=== PATIENT | male | born 1930 | race Caucasian/White ===

== ENCOUNTER 2016-11-06 12:19 | Observation (INO) | payer MEDICARE, BC ==
--- NOTE | 2016-11-06 12:55 | ED ---
General Adult HPI - General Chief complaint: Arrhythmia/Palpitations Stated complaint: Irregular Heartbeat Time Seen by Provider: 11/06/16 12:40 Source: patient, RN notes reviewed Mode of arrival: ambulatory Limitations: no limitations - History of Present Illness Initial comments: 86-year-old male presents for evaluation of bilateral arm pain. Patient has history of CAD status post artery bypass graft 9 years ago. Patient states at the time of his initial bypasses chief complaint was bilateral arm pain. He felt he should be evaluated for this. Patient saw his primary care physician in [place], was noted to have an irregular bradycardic heart rate. Patient refused EMS transport, came by private vehicle. Patient's arm pain is nearly resolved at the time my evaluation. No chest pain. No shortness of breath. No diaphoresis. No nausea vomiting. No fever or chills. No cough. - Related Data Home Medications Medication Instructions Recorded Confirmed Aspirin 81 mg PO DAILY 11/06/16 11/06/16 Carvedilol [Coreg] 3.125 mg PO BID 11/06/16 11/06/16 Cholecalciferol [Vitamin D3] 1,000 unit PO DAILY 11/06/16 11/06/16 Finasteride [Proscar] 5 mg PO DAILY 11/06/16 11/06/16 Simvastatin [Zocor] 10 mg PO HS 11/06/16 11/06/16 Allergies Allergy/AdvReac Type Severity Reaction Status Date / Time No Known Allergies Allergy Verified 11/06/16 12:53 Review of Systems ROS Statement: Those systems with pertinent positive or pertinent negative responses have been documented in the HPI. ROS Other: All systems not noted in ROS Statement are negative. Past Medical History Past Medical History: Coronary Artery Disease (CAD) History of Any Multi-Drug Resistant Organisms: None Reported Past Surgical History: Appendectomy, Coronary Bypass/CABG, Tonsillectomy Past Psychological History: No Psychological Hx Reported Smoking Status: Never smoker Past Alcohol Use History: Unable to Obtain Past Drug Use History: None Reported General Exam Limitations: no limitations General appearance: alert, in no apparent distress Head exam: Present: atraumatic, normocephalic Eye exam: Present: normal appearance, PERRL ENT exam: Present: normal exam Neck exam: Present: normal inspection. Absent: tenderness, meningismus Respiratory exam: Present: normal lung sounds bilaterally. Absent: respiratory distress Cardiovascular Exam: Present: normal rhythm, bradycardia GI/Abdominal exam: Present: soft. Absent: distended, tenderness Extremities exam: Present: normal inspection, normal capillary refill. Absent: pedal edema Neurological exam: Present: alert, oriented X3, CN II-XII intact. Absent: motor sensory deficit Psychiatric exam: Present: normal affect, normal mood Skin exam: Present: warm, dry, intact. Absent: cyanosis, diaphoretic Course Vital Signs 11/06/16 11/06/16 12:35 14:11 Temperature 98.0 F Pulse Rate 53 L 58 L Respiratory 20 18 Rate Blood Pressure 116/73 114/84 O2 Sat by Pulse 97 98 Oximetry EKG Findings - EKG Comments: EKG Findings:: EKG shows sinus bradycardia with first-degree AV block, ventricular 51, CT interval 226, QRS duration 86, QTC 388, no ST segment elevation or depression, no T-wave abnormality Medical Decision Making - Medical Decision Making 86 male presenting with bilateral arm pain. Patient does have history of CAD status post CABG and states that with his previous HI he had bilateral arm pain , no chest pain. Patient denies chest pain at this time. Arm pain is nearly completely resolved at the time my evaluation. No associated symptoms noted. Chest x-ray is obtained, shows left base atelectasis. Laboratory studies reveal no elevation in white count, stable hemoglobin, initial troponin is negative. Patient is given an aspirin in the emergency department EKG is nonischemic, shows sinus bradycardia with first-degree AV block. EKG obtained at the patient's primary care physician does show heart block consistent with Mobitz type II with a ventricular rate of 50. Patient has no known history of heart block. He is on Coreg. No recent change in medications. Diagnosis: Anginal equivalent, bradycardia - Lab Data Result diagrams: 11/06/16 13:08 11/06/16 13:08 Lab Results 11/06/16 11/06/16 11/06/16 Range/Units 13:08 13:08 13:08 WBC 4.1 (3.8-10.6) k/uL RBC 5.08 (4.30-5.90) m/uL Hgb 15.6 (13.0-17.5) gm/dL Hct 45.4 (39.0-53.0) % MCV 89.4 (80.0-100.0) fL MCH 30.8 (25.0-35.0) pg MCHC 34.4 (31.0-37.0) g/dL RDW 13.0 (11.5-15.5) % Plt Count 136 L (150-450) k/uL Neutrophils % (Manual) 53 % Band Neutrophils % 1 % Lymphocytes % (Manual) 29 % Monocytes % (Manual) 12 % Eosinophils % (Manual) 5 % Neutrophils # (Manual) 2.20 (1.3-7.7) k/uL Lymphocytes # (Manual) 1.19 (1.0-4.8) k/uL Monocytes # (Manual) 0.49 (0-1.0) k/uL Eosinophils # (Manual) 0.21 (0-0.7) k/uL Nucleated RBCs 0 (0-0) /100 WBC Manual Slide Review Performed RBC Morphology Normal PT (9.0-12.0) sec INR (<1.2) APTT (22.0-30.0) sec Sodium 139 (137-145) mmol/L Potassium 5.0 (3.5-5.1) mmol/L Chloride 109 H (98-107) mmol/L Carbon Dioxide 22 (22-30) mmol/L Anion Gap 8 mmol/L BUN 21 H (9-20) mg/dL Creatinine 1.00 (0.66-1.25) mg/dL Est GFR (MDRD) Af Amer >60 (>60 ml/min/1.73 sqM) Est GFR (MDRD) Non-Af >60 (>60 ml/min/1.73 sqM) Glucose 103 H (74-99) mg/dL Calcium 9.1 (8.4-10.2) mg/dL Magnesium 2.0 (1.6-2.3) mg/dL Total Bilirubin 0.6 (0.2-1.3) mg/dL AST 21 (17-59) U/L ALT 32 (21-72) U/L Alkaline Phosphatase 53 (38-126) U/L Total Creatine Kinase 60 (55-170) U/L CK-MB (CK-2) 1.2 (0.0-2.4) ng/mL CK-MB (CK-2) Rel Index 2.0 Troponin I <0.012 (0.000-0.034) ng/mL Total Protein 6.0 L (6.3-8.2) g/dL Albumin 3.6 (3.5-5.0) g/dL TSH 1.390 (0.465-4.680) mIU/L 11/06/16 Range/Units 13:08 WBC (3.8-10.6) k/uL RBC (4.30-5.90) m/uL Hgb (13.0-17.5) gm/dL Hct (39.0-53.0) % MCV (80.0-100.0) fL MCH (25.0-35.0) pg MCHC (31.0-37.0) g/dL RDW (11.5-15.5) % Plt Count (150-450) k/uL Neutrophils % (Manual) % Band Neutrophils % % Lymphocytes % (Manual) % Monocytes % (Manual) % Eosinophils % (Manual) % Neutrophils # (Manual) (1.3-7.7) k/uL Lymphocytes # (Manual) (1.0-4.8) k/uL Monocytes # (Manual) (0-1.0) k/uL Eosinophils # (Manual) (0-0.7) k/uL Nucleated RBCs (0-0) /100 WBC Manual Slide Review RBC Morphology PT 10.7 (9.0-12.0) sec INR 1.1 (<1.2) APTT 29.3 (22.0-30.0) sec Sodium (137-145) mmol/L Potassium (3.5-5.1) mmol/L Chloride (98-107) mmol/L Carbon Dioxide (22-30) mmol/L Anion Gap mmol/L BUN (9-20) mg/dL Creatinine (0.66-1.25) mg/dL Est GFR (MDRD) Af Amer (>60 ml/min/1.73 sqM) Est GFR (MDRD) Non-Af (>60 ml/min/1.73 sqM) Glucose (74-99) mg/dL Calcium (8.4-10.2) mg/dL Magnesium (1.6-2.3) mg/dL Total Bilirubin (0.2-1.3) mg/dL AST (17-59) U/L ALT (21-72) U/L Alkaline Phosphatase (38-126) U/L Total Creatine Kinase (55-170) U/L CK-MB (CK-2) (0.0-2.4) ng/mL CK-MB (CK-2) Rel Index Troponin I (0.000-0.034) ng/mL Total Protein (6.3-8.2) g/dL Albumin (3.5-5.0) g/dL TSH (0.465-4.680) mIU/L Disposition Clinical Impression: Bradycardia, Anginal equivalent Disposition: ADMITTED IP TO THIS HOSP Condition: Stable Referrals: Hilario Wagoner DO [Primary Care Provider] - 1-2 days Decision to Admit Reason: Admit from EC Decision Date: 11/06/16 Decision Time: 15:00
--- NOTE | 2016-11-06 13:28 | XR ---
EXAMINATION TYPE: XR chest 1V portable DATE OF EXAM: 11/06/2016 COMPARISON: NONE HISTORY: Dysrhythmia. TECHNIQUE: Single AP portable frontal upright view of the chest is obtained. FINDINGS: There is patchy left basilar opacity consistent with atelectasis and/or infiltrate. Scatt ered calcified granulomas right hilar and lower lung are present. No large pleural effusion or pneumo thorax is seen bilaterally. Post CABG changes with mediastinal clips and sternal wires is noted. The cardiac silhouette size is upper limits of normal with ectatic thoracic aorta. There is degenerative change at bilateral glenohumeral joints. Old right posterior eighth rib fractures suspected. IMPRESSION: Chronic changes with patchy left basilar atelectasis and/or infiltrate.
[2016-11-06 13:32] LABS: Aty Lym Flag Slight; CH 30.5; CHCM 34.2; HCT 45.4 % (39.0-53.0); HDW 2.58; HGB 15.6 gm/dL (13.0-17.5); MCH 30.8 pg (25.0-35.0); MCHC 34.4 g/dL (31.0-37.0); MCV 89.4 fL (80.0-100.0); RBC 5.08 m/uL (4.30-5.90); WBC 4.1 k/uL (3.8-10.6); WBC (Perox) 3.65
[2016-11-06 13:36] LABS: ALT 32 U/L (21-72); AST 21 U/L (17-59); Alkaline Phosphatase 53 U/L (38-126); Anion Gap 8 mmol/L; Blood Urea Nitrogen 21 mg/dL (9-20); Calcium 9.1 mg/dL (8.4-10.2); Carbon Dioxide 22 mmol/L (22-30); Chloride 109 mmol/L (98-107); Glucose 103 mg/dL (74-99); Non-African American GFR(MDRD) >60 (>60 ml/min/1.73 sqM); Sodium 139 mmol/L (137-145); Total Bilirubin 0.6 mg/dL (0.2-1.3)
[2016-11-06 13:45] LABS: INR 1.1 (<1.2); Partial Thromboplastin Time 29.3 sec (22.0-30.0); Prothrombin Time 10.7 sec (9.0-12.0)
[2016-11-06 13:54] LABS: Add Differential Manual Differential
[2016-11-06 13:56] LABS: Band Neutrophils % 1 %; Manual Review Performed; Nucleated Red Blood Cells 0 /100 WBC (0-0); Total Cells Counted 100
[2016-11-06 13:57] LABS: RBC Morphology Normal
[2016-11-06 14:00] LABS: Creatine Kinase 60 U/L (55-170)
[2016-11-06 14:13] LABS: Creatine Kinase MB 1.2 ng/mL (0.0-2.4); Troponin I <0.012 ng/mL (0.000-0.034)
[2016-11-06] MEDS ORDERED: ASPIRIN 325 MG TAB PO STA (14:31)
[2016-11-06] MEDS ORDERED: ONDANSETRON 4 MG/2 ML VIAL IVP PRN (14:53)
[2016-11-06] MEDS ORDERED: NALOXONE 0.4 MG/ML 1 ML VIAL IV PRN (14:53)
[2016-11-06] MEDS ORDERED: MORPHINE SULFATE 4 MG/ML SYRINGE IV PRN (14:53)
[2016-11-06] MEDS: SODIUM CHLORIDE 0.9% 1,000 ML IV SCH (15:05)
[2016-11-06 16:02] VITALS: RESP 18
--- NOTE | 2016-11-06 16:24 | US ---
EXAMINATION TYPE: US venous doppler duplex LE RT DATE OF EXAM: 11/06/2016 4:15 PM COMPARISON: NONE CLINICAL HISTORY: Pain. Patient states hx of DVT in right leg x 4 years ago, leg has been bigger than the other since. On baby aspirin. SIDE PERFORMED: Right TECHNIQUE: The lower extremity deep venous system is examined utilizing real time linear array sonog robin with graded compression, doppler sonography and color-flow sonography. VESSELS IMAGED: External Iliac Vein (EIV) Common Femoral Vein Deep Femoral Vein Greater Saphenous Vein * Femoral Vein Popliteal Vein Small Saphenous Vein * Proximal Calf Veins (* superficial vessels) Right Leg: Appears POSITIVE for DVT from proximal Femoral vein to mid Popliteal. Light compressions performed, partial compressible. IMPRESSION: Findings compatible with DVT as noted above.
[2016-11-06] MEDS ORDERED: HEPARIN SODIUM,PORCINE 5,000 UNIT/ML 1 ML VIAL IV STA (16:59)
[2016-11-06] MEDS: HEPARIN SODIUM,PORCINE/D5W PMX 25,000 UNIT in DEXTROSE/WATER 1 500ML.BAG IV SCH (17:27)
[2016-11-06 18:39] LABS: Creatine Kinase 51 U/L (55-170)
[2016-11-06 18:53] LABS: Creatine Kinase MB 1.1 ng/mL (0.0-2.4); Troponin I <0.012 ng/mL (0.000-0.034)
[2016-11-06] MEDS: ATORVASTATIN 10 MG TAB PO SCH (22:17)
[2016-11-07 00:53] LABS: Creatine Kinase 44 U/L (55-170)
--- NOTE | 2016-11-07 01:05 | P.HPIM ---
History of Present Illness H&P Date: 11/06/16 Chief Complaint: Left arm pain 86-year-old male with a known history of coronary artery disease status post 2 vessel CABG in 2008, history of right lower extremity DVT 2 years ago presents for evaluation of bilateral arm pain Patient states at the time of his initial bypasses chief complaint was bilateral arm pain. He felt he should be evaluated for this. Patient saw his primary care physician in [place], was noted to have an irregular bradycardic heart rate. Patient refused EMS transport, came by private vehicle. Patient's arm pain is resolved at this time. No chest pain. No shortness of breath. No diaphoresis. No nausea vomiting. No fever or chills. No cough. Denied any recent illnesses. Patient says that his right lower back and is chronically swollen since his DVT diagnosis. EKG showed sinus bradycardia with first degree AV block heart rate of 51 Troponin 2 negative Chest x-ray showed chronic changes with patchy left basilar atelectasis Ultrasound of the lower extremity showed right positive for DVT from proximal femoral vein to popliteal vein. Review of Systems CONSTITUTIONAL: No fever, no malaise, no fatigue. HEENT: No recent visual problems or hearing problems. Denied any sore throat. CARDIOVASCULAR: No chest pain, orthopnea, PND, no palpitations, no syncope. PULMONARY: , no hemoptysis. GASTROINTESTINAL: No diarrhea, no nausea, no vomiting, no abdominal pain. Normoactive bowel sounds. NEUROLOGICAL: No headaches, no weakness, no numbness. HEMATOLOGICAL: Denies any bleeding or petechiae. GENITOURINARY: Denies any burning micturition, frequency, or urgency. MUSCULOSKELETAL/RHEUMATOLOGICAL: Denies any joint pain, swelling, or any muscle pain. Bilateral arm pain ENDOCRINE: Denies any polyuria or polydipsia. The rest of the 14-point review of systems is negative. Past Medical History Past Medical History: Coronary Artery Disease (CAD), Cancer, Hyperlipidemia, Pneumonia, Prostate Disorder Additional Past Medical History / Comment(s): BROKEN RIBS IN PAST, SKIN CA History of Any Multi-Drug Resistant Organisms: None Reported Past Surgical History: Appendectomy, Coronary Bypass/CABG, Hernia Repair, Tonsillectomy Additional Past Surgical History / Comment(s): 2 VESSEL CABG, JORGE L CATARACT-LENS IMPLANTS,JORGE L HERNIA REPAIR, SKIN CA REM FLEECIA Past Anesthesia/Blood Transfusion Reactions: No Reported Reaction Smoking Status: Never smoker - Past Family History Mother Family Medical History: Myocardial Infarction (MS) Father Family Medical History: Myocardial Infarction (MS) Medications and Allergies Home Medications Medication Instructions Recorded Confirmed Type Aspirin 81 mg PO DAILY 11/06/16 11/06/16 History Carvedilol [Coreg] 3.125 mg PO BID 11/06/16 11/06/16 History Cholecalciferol [Vitamin D3] 1,000 unit PO DAILY 11/06/16 11/06/16 History Finasteride [Proscar] 5 mg PO DAILY 11/06/16 11/06/16 History Simvastatin [Zocor] 10 mg PO HS 11/06/16 11/06/16 History Allergies Allergy/AdvReac Type Severity Reaction Status Date / Time No Known Allergies Allergy Verified 11/06/16 12:53 Physical Exam Vitals: Vital Signs Temp Pulse Pulse Resp BP BP Pulse Ox 11/06/16 20:00 97.5 F L 56 L 18 132/66 98 11/06/16 18:33 69.9 F L 61 18 121/58 96 11/06/16 18:28 69.9 F L 61 18 121/58 96 11/06/16 17:38 55 L 18 124/67 98 11/06/16 16:01 44 L 18 125/79 97 11/06/16 15:08 77 20 128/59 98 11/06/16 14:11 58 L 18 114/84 98 11/06/16 12:35 98.0 F 53 L 20 116/73 97 Intake and Output 11/06/16 11/06/16 11/06/16 06:59 14:59 22:59 Other: Voiding Method Toilet Weight 106.594 kg Patient Weight 11/07/16 06:59 Weight 106.594 kg PHYSICAL EXAMINATION: Patient is lying in the bed comfortably, no acute distress, awake alert and oriented.. HEENT: Normocephalic. Neck is supple. Pupils reactive. Nostrils clear. Oral cavity is moist. Ears reveal no drainage. Neck reveals no JVD, carotid bruits, or thyromegaly. CHEST EXAMINATION: Trachea is central. Symmetrical expansion. Lung webb clear to auscultation and percussion. CARDIAC: Normal S1, S2 with no gallops. No murmurs . Sinus bradycardia ABDOMEN: Soft. Bowel sounds normal. No organomegaly. No abdominal bruits. Extremities. Right lower extremity appears to swollen compared to left. No clubbing or cyanosis. No calf tenderness Neurologically awake, alert, oriented x3 with well-coordinated movements. l Skin: no rash or skin lesions Musculoskeletal: no joint swelling or deformity. Results CBC & Chem 7: 11/06/16 13:08 11/06/16 13:08 Labs: Abnormal Lab Results - Last 24 Hours (Table) 11/06/16 11/06/16 11/06/16 Range/Units 13:08 13:08 18:10 Plt Count 136 L (150-450) k/uL Chloride 109 H (98-107) mmol/L BUN 21 H (9-20) mg/dL Glucose 103 H (74-99) mg/dL Total Creatine Kinase 51 L (55-170) U/L Total Protein 6.0 L (6.3-8.2) g/dL Assessment and Plan Plan: #1 atypical chest pain. Patient presented with left arm pain which was similar to his previous MS. We will rule out ACS #2 right lower extremity DVT in the proximal femoral vein. #3 history of DVT in the right lower extremity 2 years ago. Was on anticoagulant with Coumadin for 6 months #4 history of coronary artery disease post MS and CABG in 2008. #5 morbid obesity with BMI 35.7. Plan: Patient will be continued on heparin drip and possibly change to oral anticoagulants tomorrow. We will continue with serial EKG and troponins and telemetry monitoring. Continue with aspirin and statins and hold Coreg due to bradycardia. Cardiology has been consulted. We'll continue the current management and further recommendations based on clinical course. Time with Patient: Greater than 30
[2016-11-07 01:06] LABS: Troponin I <0.012 ng/mL (0.000-0.034)
[2016-11-07] MEDS: FINASTERIDE 5 MG TAB PO SCH (08:55)
[2016-11-07] MEDS: ASPIRIN 81 MG PO SCH (08:55)
[2016-11-07] MEDS: CHOLECALCIFEROL 1,000 UNIT TAB PO SCH (08:55)
[2016-11-07 09:46] LABS: Basophils % (A) 1 %; CH 30.5; CHCM 33.8; Eosinophils # (A) 0.1 k/uL (0-0.7); Eosinophils % (A) 4 %; HCT 45.9 % (39.0-53.0); HDW 2.53; HGB 15.3 gm/dL (13.0-17.5); Luc # (Auto) 0.18; Luc % (Auto) 4; Lymphocytes # (A) 0.9 k/uL (1.0-4.8); Lymphocytes % (A) 23 %; MCH 30.3 pg (25.0-35.0); MCHC 33.3 g/dL (31.0-37.0); MCV 90.8 fL (80.0-100.0); Monocytes # (A) 0.4 k/uL (0-1.0); Monocytes % (A) 9 %; Neutrophils # (A) 2.4 k/uL (1.3-7.7); Neutrophils % (A) 60 %; RBC 5.06 m/uL (4.30-5.90); WBC (Perox) 3.96
--- NOTE | 2016-11-07 10:10 | P.CRDCN ---
History of Present Illness Consult date: 11/07/16 Requesting physician: Tone Carson Consult reason: chest pain Chief complaint: Bilateral arm pain History of present illness: This is a pleasant 86-year-old gentleman with known history of coronary artery disease and prior two-vessel coronary artery bypass grafting surgery several years ago in [place], history of hypertension, hyperlipidemia, prior DVT for which the patient had been on Coumadin, this had been discontinued approximately 6 months ago. Patient does state that his right leg is always bigger than his left since he sat the DVT. He presents to the hospital on this occasion with symptoms of discomfort in both of his arms around the elbow region, he describes it as an aching sensation, wakes him up from sleep around 3 AM. States that prior to his coronary artery bypass grafting surgery he had similar symptoms, this concerned him and for this reason he came to the emergency room for further evaluation. Patient states that following the episode of bilateral arm discomfort he did have some aching in his left arm which has now subsided. He denies any chest discomfort, no difficulty in breathing, no dizziness or lightheadedness. EKG on arrival here shows a sinus bradycardia with a first-degree AV block. Monitor strips show a sinus bradycardia with occasional PACs and PVCs. Chest x-ray reveals chronic changes with patchy left basilar atelectasis and/or infiltrate. Venous duplex of the lower extremities was performed which reveals evidence of a DVT in the right lower extremity, we will have the radiologist, and on whether this is a chronic or acute. Patient does have a history of a DVT in that leg. Blood pressure 128/70 with a heart rate in the 50s to 70s. White blood cell count 4.0 , hemoglobin 15.3, platelet count 132. Potassium 5.0, BUN 21, creatinine 1.0. TSH is normal. At the time of my examination this morning, patient denies any arm discomfort, no dizziness or lightheadedness. Feeling quite well overall. Past Medical History Past Medical History: Coronary Artery Disease (CAD), Cancer, Hyperlipidemia, Pneumonia, Prostate Disorder Additional Past Medical History / Comment(s): BROKEN RIBS IN PAST, SKIN CA History of Any Multi-Drug Resistant Organisms: None Reported Past Surgical History: Appendectomy, Coronary Bypass/CABG, Hernia Repair, Tonsillectomy Additional Past Surgical History / Comment(s): 2 VESSEL CABG, JORGE L CATARACT-LENS IMPLANTS,JORGE L HERNIA REPAIR, SKIN CA REM FELECIA Past Anesthesia/Blood Transfusion Reactions: No Reported Reaction Smoking Status: Never smoker - Past Family History Mother Family Medical History: Myocardial Infarction (HI) Father Family Medical History: Myocardial Infarction (HI) Medications and Allergies Home Medications Medication Instructions Recorded Confirmed Type Aspirin 81 mg PO DAILY 11/06/16 11/06/16 History Carvedilol [Coreg] 3.125 mg PO BID 11/06/16 11/06/16 History Cholecalciferol [Vitamin D3] 1,000 unit PO DAILY 11/06/16 11/06/16 History Finasteride [Proscar] 5 mg PO DAILY 11/06/16 11/06/16 History Simvastatin [Zocor] 10 mg PO HS 11/06/16 11/06/16 History Allergies Allergy/AdvReac Type Severity Reaction Status Date / Time No Known Allergies Allergy Verified 11/06/16 12:53 Physical Exam Vitals: Vital Signs Temp Pulse Pulse Resp BP BP Pulse Ox 11/07/16 08:58 97 F L 57 L 18 128/71 95 11/07/16 04:00 97.2 F L 70 18 125/49 96 11/07/16 00:00 97.0 F L 95 18 115/68 95 11/06/16 20:00 97.5 F L 56 L 18 132/66 98 11/06/16 18:33 69.9 F L 61 18 121/58 96 11/06/16 18:28 69.9 F L 61 18 121/58 96 11/06/16 17:38 55 L 18 124/67 98 11/06/16 16:01 44 L 18 125/79 97 11/06/16 15:08 77 20 128/59 98 11/06/16 14:11 58 L 18 114/84 98 11/06/16 12:35 98.0 F 53 L 20 116/73 97 Intake and Output 11/06/16 11/07/16 11/07/16 22:59 06:59 14:59 Intake Total 473 Output Total 200 Balance 273 Intake: IV 320 Heparin Sodium,Porcine/ 160 D5w Pmx 25,000 unit In Dextrose/Water 1 500ml. bag @ 9.382 UNITS/KG/HR 20 mls/hr IV .Q24H [facility] Rx #:[id number] Sodium Chloride 0.9% 1, 160 000 ml @ 20 mls/hr IV . Q24H [facility] Rx#:[id number] Intake, IV Titration 153 Amount Heparin Sodium,Porcine/ 153 D5w Pmx 25,000 unit In Dextrose/Water 1 500ml. bag @ 9.382 UNITS/KG/HR 20 mls/hr IV .Q24H [facility] Rx #:[id number] Output: Urine 200 Other: Voiding Method Toilet Toilet Toilet # Voids 1 Weight 102.9 kg PHYSICAL EXAMINATION: HEENT: Head is atraumatic, normocephalic. Pupils equal, round. Neck is supple. There is no elevated jugular venous pressure. HEART EXAMINATION: Heart S1 and S2 systolic murmur is heard. CHEST EXAMINATION: Lungs are clear to auscultation and precussion. No chest wall tenderness is noted on palpation or with deep breathing. ABDOMEN: Soft, nontender. Bowel sounds are heard. No organomegaly noted. EXTREMITIES: 2+ peripheral pulses bilaterally, swelling noted to the right lower extremity. . NEUROLOGIC patient is awake, alert and oriented -3. . Results 11/06/16 13:08 11/06/16 13:08 Cardiac Enzymes 11/06/16 11/06/16 11/06/16 Range/Units 13:08 13:08 18:10 AST 21 (17-59) U/L CK-MB (CK-2) 1.2 1.1 (0.0-2.4) ng/mL Troponin I <0.012 <0.012 (0.000-0.034) ng/mL 11/06/16 Range/Units 23:56 AST (17-59) U/L CK-MB (CK-2) 1.0 (0.0-2.4) ng/mL Troponin I <0.012 (0.000-0.034) ng/mL Coagulation 11/06/16 11/06/16 11/07/16 Range/Units 13:08 23:56 08:26 PT 10.7 (9.0-12.0) sec APTT 29.3 114.7 H* 48.2 H (22.0-30.0) sec CBC 11/06/16 Range/Units 13:08 WBC 4.1 (3.8-10.6) k/uL RBC 5.08 (4.30-5.90) m/uL Hgb 15.6 (13.0-17.5) gm/dL Hct 45.4 (39.0-53.0) % Plt Count 136 L (150-450) k/uL Comprehensive Metabolic Panel 11/06/16 Range/Units 13:08 Sodium 139 (137-145) mmol/L Potassium 5.0 (3.5-5.1) mmol/L Chloride 109 H (98-107) mmol/L Carbon Dioxide 22 (22-30) mmol/L BUN 21 H (9-20) mg/dL Creatinine 1.00 (0.66-1.25) mg/dL Glucose 103 H (74-99) mg/dL Calcium 9.1 (8.4-10.2) mg/dL AST 21 (17-59) U/L ALT 32 (21-72) U/L Alkaline Phosphatase 53 (38-126) U/L Total Protein 6.0 L (6.3-8.2) g/dL Albumin 3.6 (3.5-5.0) g/dL Current Medications Generic Name Dose Route Start Last Admin Trade Name Freq PRN Reason Stop Dose Admin Aspirin 81 mg 11/07/16 09:00 11/07/16 08:55 Aspirin PO 81 mg DAILY [facility] Administration Atorvastatin Calcium 10 mg 11/06/16 21:30 11/06/16 22:17 Lipitor PO 10 mg HS [facility] Administration Cholecalciferol 1,000 unit 11/07/16 09:00 11/07/16 08:55 Vitamin D3 PO 1,000 unit DAILY [facility] Administration Finasteride 5 mg 11/07/16 09:00 11/07/16 08:55 Proscar PO 5 mg DAILY [facility] Administration Sodium Chloride 1,000 mls @ 20 mls/hr 11/06/16 15:00 11/06/16 15:05 Saline 0.9% IV 20 mls/hr .Q24H [facility] Administration Heparin Sodium/Dextrose 25,000 500 mls @ 20 mls/hr 11/06/16 17:00 11/07/16 01 :58 unit/ IV Solution IV 6.382 units/kg/hr .Q24H [facility] 13.6 mls/hr Protocol Titration 9.382 UNITS/KG/HR Morphine Sulfate 4 mg 11/06/16 14:53 Morphine Sulfate (Inj) IV Q4HR PRN Severe Pain Naloxone HCl 0.2 mg 11/06/16 14:53 Narcan IV Q2M PRN Opioid Reversal Ondansetron HCl 4 mg 11/06/16 14:53 Zofran IVP Q8HR PRN Nausea And Vomiting Intake and Output 11/06/16 11/07/16 11/07/16 22:59 06:59 14:59 Intake Total 473 Output Total 200 Balance 273 Intake: IV 320 Heparin Sodium,Porcine/ 160 D5w Pmx 25,000 unit In Dextrose/Water 1 500ml. bag @ 9.382 UNITS/KG/HR 20 mls/hr IV .Q24H [facility] Rx #:[id number] Sodium Chloride 0.9% 1, 160 000 ml @ 20 mls/hr IV . Q24H [facility] Rx#:[id number] Intake, IV Titration 153 Amount Heparin Sodium,Porcine/ 153 D5w Pmx 25,000 unit In Dextrose/Water 1 500ml. bag @ 9.382 UNITS/KG/HR 20 mls/hr IV .Q24H [facility] Rx #:[id number] Output: Urine 200 Other: Voiding Method Toilet Toilet Toilet # Voids 1 Weight 102.9 kg 11/06/16 13:08 11/06/16 13:08 EKG Interpretations (text) EKG shows a sinus bradycardia with first-degree AV block. Assessment and Plan Plan: Assessment and plan #1 symptoms of bilateral arm discomfort, troponins negative 3. EKG shows a sinus bradycardia with first-degree AV block #2 known history of coronary artery disease with prior 2 vessel bypass in [place] over 10 years ago. #3 hypertension #4 hyperlipidemia #5 history of DVT in the right lower extremity #6 sinus bradycardia with PACs and PVCs, Coreg currently on hold. TSH is normal. Plan We will obtain an echocardiogram with Doppler study. Patient feels that his bilateral arm discomfort is similar to what he had prior to his bypass surgery. We may consider doing a stress test today. Coreg currently on hold because of the bradycardia. Further recommendations to follow. DNP note has been reviewed, I agree with a documented findings and plan of care. Patient was seen and examined.
[2016-11-07 10:15] LABS: ALT 22 U/L (21-72); AST 33 U/L (17-59); Alkaline Phosphatase 53 U/L (38-126); Anion Gap 9 mmol/L; Blood Urea Nitrogen 17 mg/dL (9-20); Calcium 8.9 mg/dL (8.4-10.2); Carbon Dioxide 15 mmol/L (22-30); Chloride 114 mmol/L (98-107); Glucose 86 mg/dL (74-99); Non-African American GFR(MDRD) >60 (>60 ml/min/1.73 sqM); Potassium 5.1 mmol/L (3.5-5.1); Sodium 138 mmol/L (137-145); Total Bilirubin 1.1 mg/dL (0.2-1.3)
[2016-11-07] MEDS: SODIUM CHLORIDE 0.9% 1,000 ML IV SCH (13:22)
[2016-11-07] MEDS: HEPARIN SODIUM,PORCINE/D5W PMX 25,000 UNIT in DEXTROSE/WATER 1 500ML.BAG IV SCH (13:22)
[2016-11-07] MEDS: ATORVASTATIN 10 MG TAB PO SCH (20:03)
--- NOTE | 2016-11-07 23:46 | P.PN ---
Subjective Principal diagnosis: A typical chest pain and sinus bradycardia as well as right LE DVT 86-year-old male with a known history of coronary artery disease status post 2 vessel CABG in 2008, history of right lower extremity DVT 2 years ago presents for evaluation of bilateral arm pain Patient states at the time of his initial bypasses chief complaint was bilateral arm pain. He felt he should be evaluated for this. Patient saw his primary care physician in [place], was noted to have an irregular bradycardic heart rate. Patient refused EMS transport, came by private vehicle. Patient's arm pain is resolved at this time. No chest pain. No shortness of breath. No diaphoresis. No nausea vomiting. No fever or chills. No cough. Denied any recent illnesses. Patient says that his right lower back and is chronically swollen since his DVT diagnosis. EKG showed sinus bradycardia with first degree AV block heart rate of 51 Troponin 2 negative Chest x-ray showed chronic changes with patchy left basilar atelectasis Ultrasound of the lower extremity showed right positive for DVT from proximal femoral vein to popliteal vein. On 11/07/2016 Patient denied any arm pain or chest pain today. Coreg is on hold. Cardiology is planning for stress test. Otherwise no complaints of chest pain no nausea vomiting or abdominal pain. no acute overnight issues. Current medications reviewed Objective - Vital Signs Vital signs: Vital Signs Temp 97.1 F L 11/07/16 19:53 Pulse 65 11/07/16 19:53 Resp 18 11/07/16 19:53 BP 127/79 11/07/16 19:53 Pulse Ox 94 L 11/07/16 19:53 Intake & Output 11/07/16 11/07/16 11/08/16 06:59 18:59 06:59 Intake Total 473 513.04 Output Total 200 900 Balance 273 -386.96 Weight 102.9 kg Intake: IV 320 Heparin Sodium,Porcine/ 160 D5w Pmx 25,000 unit In Dextrose/Water 1 500ml. bag @ 9.382 UNITS/KG/HR 20 mls/hr IV .Q24H [facility] Rx #:[id number] Sodium Chloride 0.9% 1, 160 000 ml @ 20 mls/hr IV . Q24H [facility] Rx#:[id number] Intake, IV Titration 153 155.04 Amount Heparin Sodium,Porcine/ 153 155.04 D5w Pmx 25,000 unit In Dextrose/Water 1 500ml. bag @ 9.382 UNITS/KG/HR 20 mls/hr IV .Q24H [facility] Rx #:[id number] Oral 358 Output: Urine 200 900 Other: Voiding Method Toilet Toilet Toilet # Voids 1 - Exam PHYSICAL EXAMINATION: Patient is lying in the bed comfortably, no acute distress, awake alert and oriented.. HEENT: Normocephalic. Neck is supple. Pupils reactive. Nostrils clear. Oral cavity is moist. Ears reveal no drainage. Neck reveals no JVD, carotid bruits, or thyromegaly. CHEST EXAMINATION: Trachea is central. Symmetrical expansion. Lung webb clear to auscultation and percussion. CARDIAC: Normal S1, S2 with no gallops. No murmurs. sinus bradycardia ABDOMEN: Soft. Bowel sounds normal. No organomegaly. No abdominal bruits. Extremities reveal no edema. No clubbing or cyanosis Neurologically awake, alert, oriented x3 with well-coordinated movements. Skin: no rash or skin lesions Musculoskeletal: no joint swelling or deformity. - Labs CBC & Chem 7: 11/07/16 08:26 11/07/16 08:26 Labs: Abnormal Lab Results - Last 24 Hours (Table) 11/06/16 11/06/16 11/07/16 Range/Units 23:56 23:56 08:26 Plt Count 132 L (150-450) k/uL Lymphocytes # 0.9 L (1.0-4.8) k/uL APTT 114.7 H* (22.0-30.0) sec Chloride (98-107) mmol/L Carbon Dioxide (22-30) mmol/L Total Creatine Kinase 44 L (55-170) U/L Total Protein (6.3-8.2) g/dL Albumin (3.5-5.0) g/dL 11/07/16 11/07/16 Range/Units 08:26 08:26 Plt Count (150-450) k/uL Lymphocytes # (1.0-4.8) k/uL APTT 48.2 H (22.0-30.0) sec Chloride 114 H (98-107) mmol/L Carbon Dioxide 15 L (22-30) mmol/L Total Creatine Kinase (55-170) U/L Total Protein 6.0 L (6.3-8.2) g/dL Albumin 3.4 L (3.5-5.0) g/dL Assessment and Plan Plan: #1 atypical chest pain. Patient presented with left arm pain which was similar to his previous ND. Ruled out ACS. (3 negative #2 sinus bradycardia with first-degree AV block. Coreg on hold #2 right lower extremity DVT in the proximal femoral vein. Unable to determine acute or chronic #3 history of DVT in the right lower extremity 2 years ago. Was on anticoagulant with Coumadin for >6 months #4 history of coronary artery disease post ND and CABG in 2008. #5 morbid obesity with BMI 35.7. Plan: Patient will be continued on heparin drip . Cardiology is planning for stress test today.. We will continue telemetry monitoring. Continue with aspirin and statins and hold Coreg due to bradycardia. Final plan for anticoagulation to be discussed with cardiology. We'll continue the current management and further recommendations based on clinical course. Time with Patient: Greater than 30
[2016-11-08] MEDS ORDERED: AMINOPHYLLINE 500 MG/20 ML VIAL IV PRN (06:00)
[2016-11-08] MEDS ORDERED: REGADENOSON 0.4 MG/5 ML SYRINGE IV ONE (06:00)
[2016-11-08 06:31] VITALS: PULSE 71
--- NOTE | 2016-11-08 11:55 | NM ---
EXAMINATION TYPE: NM stress lexiscan cardiolite DATE OF EXAM: 11/08/2016 COMPARISON: NONE HISTORY: Chest pain TECHNIQUE: After the intravenous administration of 10.56 mCi Tc 99m Sestamibi - Cardiolite resting S PECT images acquired 70 minutes post injection. The patient received 0.4mg Lexiscan, 28 mCi Tc 99m Sestamibi - Stress images obtained 30 minutes post injection FINDINGS: No fixed or reversible perfusion defects are evident. There is some dyskinesia of the dista l inferior wall near the apex during a portion of the contraction remaining wall motion appears yves l. Ejection fraction of 45% and is somewhat low. Polar maps suggest a defect of the inferior lateral midportion. However, the stress images have impro adrienne radiotracer compared to the resting images suggesting this may be artifact. IMPRESSION: 1. No definite stress-induced ischemic changes evident. 2. There is some dyskinesia of the distal inferior wall and a low ejection fraction of 45%.
[2016-11-08] MEDS: ASPIRIN 81 MG PO SCH (12:02)
[2016-11-08] MEDS: CHOLECALCIFEROL 1,000 UNIT TAB PO SCH (12:02)
[2016-11-08] MEDS: FINASTERIDE 5 MG TAB PO SCH (12:02)
--- NOTE | 2016-11-08 12:55 | EST ---
EXERCISE STRESS DATE OF SERVICE: 11/08/2016 AGE: 86 SEX: Male HT: 68" WT: 226 PROTOCOL: Lexiscan Cardiolite STAGE: DURATION OF EXERCISE: HEART RATE REST: 71 BLOOD PRESSURE REST: 139/77 MAXIMUM HEART RATE ACHIEVED: 88 MAXIMUM BLOOD PRESSURE: 139/77 85% MPHR: 100% MPHR: METS: INDICATIONS: Chest pain. CLINICAL INFORMATION: An 86-year-old gentleman referred for a stress test. Baseline heart rate 71 beats per minute. Baseline blood pressure 139/77 mmHg. Baseline 12-lead ECG shows normal sinus rhythm with ventricular trigeminy. The patient received Lexiscan infusion per protocol. There was no ECG evidence for ischemia. PVCs continued throughout the procedure. There was no nonsustained ventricular tachycardia. There was no exacerbation of ventricular arrhythmias. Nuclear portion of stress test will be reported separately. Blood pressure response was normal. MMODL / IJN: [id number] /
--- NOTE | 2016-11-08 15:26 | P.PN ---
Subjective Principal diagnosis: bilateral arm pain As a pleasant 86-year-old gentleman with known history of any artery disease, prior two-vessel coronary artery bypass grafting, hypertension, hyperlipidemia, prior DVT area and presented to the hospital with symptoms of discomfort in both his arms around the elbow region that he describes as an aching sensation. States that prior to his CABG he had similar symptoms and his concern for this reason. Patient was ruled out for an DE. Underwent Lexiscan Cardiolite today that showed no definite evidence of stress-induced ischemia. Objective - Vital Signs Vital signs: Vital Signs Temp 98.1 F 11/08/16 12:21 Pulse 71 11/08/16 12:21 Resp 18 11/08/16 12:21 BP 139/74 11/08/16 12:21 Pulse Ox 95 11/08/16 12:21 Intake & Output 11/07/16 11/08/16 11/08/16 18:59 06:59 18:59 Intake Total 513.04 Output Total 900 300 Balance -386.96 -300 Weight 102.512 kg Intake: Intake, IV Titration 155.04 Amount Heparin Sodium,Porcine/ 155.04 D5w Pmx 25,000 unit In Dextrose/Water 1 500ml. bag @ 9.382 UNITS/KG/HR 20 mls/hr IV .Q24H [facility] Rx #:[id number] Oral 358 Output: Urine 900 300 Other: Voiding Method Toilet Toilet Toilet # Voids 0 0 - Exam PHYSICAL EXAMINATION: HEENT: [Head is atraumatic, normocephalic. Pupils equal, round. Neck is supple. There is no elevated jugular venous pressure.] HEART EXAMINATION: [Heart sounds regular, S1 and S2 normal with a systolic murmur.] CHEST EXAMINATION:[ Lungs are clear to auscultation and precussion. No chest wall tenderness is noted on palpation or with deep breathing.] ABDOMEN: [ Soft, nontender. Bowel sounds are heard. No organomegaly noted]. EXTREMITIES:[ 2+ peripheral pulses with no evidence of peripheral edema and no calf tenderness noted]. NEUROLOGIC [patient is awake, alert and oriented x3.] . - Labs CBC & Chem 7: 11/07/16 08:26 11/07/16 08:26 Labs: Abnormal Lab Results - Last 24 Hours (Table) 11/08/16 Range/Units 07:01 APTT 42.0 H (22.0-30.0) sec Assessment and Plan Plan: Assessment and plan #1 bilateral arm discomfort, concerning for anginal equivalent, troponins negative 3 and Lexiscan Cardiolite shows no definite evidence of stress- induced ischemia #2 history of CAD with prior two-vessel CABG in [place] over 10 years ago #3 hypertension #4 hyperlipidemia From cardiology perspective, patient may be discharged home. He will follow-up with his primary front facer as an outpatient. GUEST RELATION OFFICER note has been reviewed, I agree with a documented findings and plan of care. Patient was seen and examined.
[2016-11-08 16:40] VITALS: BP 110/76; TEMP 97.6
--- NOTE | 2017-01-03 11:37 | P.DS ---
Providers Date of admission: 11/06/16 14:53 Expected date of discharge: 11/08/16 Attending physician: Tone Carson Consults: 11/06/16 14:55 Consult Physician Urgent Consulting Provider: Parish Hunt Consult Reason/Comments: chest pain, bradycardia Do you want consulting provider notified?: Yes [facility] [place] [facility] Course: Discharge diagnosis #1 atypical chest pain. Patient presented with left arm pain which was similar to his previous VT. Ruled out ACS. Troponin 3 negative #2 sinus bradycardia with first-degree AV block. Coreg on hold #2 right lower extremity DVT in the proximal femoral vein. Unable to determine acute or chronic #3 history of DVT in the right lower extremity 2 years ago. Was on anticoagulant with Coumadin for >6 months #4 history of coronary artery disease post VT and CABG in 2008. #5 morbid obesity with BMI 35.7. Hospital course 86-year-old male with a known history of coronary artery disease status post 2 vessel CABG in 2008, history of right lower extremity DVT 2 years ago presents for evaluation of bilateral arm pain Patient states at the time of his initial bypasses chief complaint was bilateral arm pain. He felt he should be evaluated for this. Patient saw his primary care physician in [place], was noted to have an irregular bradycardic heart rate. Patient refused EMS transport, came by private vehicle. Patient's arm pain is resolved at this time. No chest pain. No shortness of breath. No diaphoresis. No nausea vomiting. No fever or chills. No cough. Denied any recent illnesses. Patient says that his right lower back and is chronically swollen since his DVT diagnosis. EKG showed sinus bradycardia with first degree AV block heart rate of 51 Troponin 2 negative Chest x-ray showed chronic changes with patchy left basilar atelectasis Ultrasound of the lower extremity showed right positive for DVT from proximal femoral vein to popliteal vein. On 11/07/2016 Patient denied any arm pain or chest pain today. Coreg is on hold. Cardiology is planning for stress test. Otherwise no complaints of chest pain no nausea vomiting or abdominal pain. no acute overnight issues. 11/08/2016 Patient denied any chest pain today. Stress test with Lexiscan showed no inducible ischemia. Otherwise patient is cleared for discharge from cardiology standpoint. Discharge physical examination was done Patient Condition at Discharge: Stable Plan - Discharge Summary Discharge Rx Participant: No New Discharge Prescriptions: Continue Simvastatin [Zocor] 10 mg PO HS Finasteride [Proscar] 5 mg PO DAILY Aspirin 81 mg PO DAILY Cholecalciferol [Vitamin D3] 1,000 unit PO DAILY Discontinued Carvedilol [Coreg] 3.125 mg PO BID Discharge Medication List Aspirin 81 mg PO DAILY 11/06/16 [History] Cholecalciferol [Vitamin D3] 1,000 unit PO DAILY 11/06/16 [History] Finasteride [Proscar] 5 mg PO DAILY 11/06/16 [History] Simvastatin [Zocor] 10 mg PO HS 11/06/16 [History] Follow up Appointment(s)/Referral(s): Parish Hunt MD [STAFF PHYSICIAN] - 11/28/17 9:15 am Hilario Wagoner DO [Primary Care Provider] - 11/12/16 11:00 am Patient Instructions/Handouts: Chest Pain (DC) Activity/Diet/Wound Care/Special Instructions: COreg on hold, re-eval at f/u with Dr. Hunt next week Discharge Disposition: HOME SELF-CARE
== END 2016-11-08 17:52 | disposition home or self-care (01) ==
LOC: EC 12:19 → 6SEL 14:53
PROVIDERS: ADMIT Internal Medicine; ATTEND Internal Medicine
DX: R07.89 Other chest pain (principal); R00.2 Palpitations; M79.601 Pain in right arm; M79.602 Pain in left arm; I25.10 Atherosclerotic heart disease of native coronary artery without angina pectoris; I10 Essential (primary) hypertension; I25.2 Old myocardial infarction; R00.1 Bradycardia, unspecified; I44.0 Atrioventricular block, first degree; E78.5 Hyperlipidemia, unspecified; N42.9 Disorder of prostate, unspecified; I82.411 Acute embolism and thrombosis of right femoral vein; E66.01 Morbid (severe) obesity due to excess calories; Z82.49 Family history of ischemic heart disease and other diseases of the circulatory system; Z79.899 Other long term (current) drug therapy; Z79.82 Long term (current) use of aspirin; Z95.1 Presence of aortocoronary bypass graft; Z68.35 Body mass index [BMI] 35.0-35.9, adult
CPT/HCPCS: 36415; 71010; 78452; 80053; 82550; 82553; 83735; 84443; 84484; 85025; 85610; 85730; 93005; 93017; 94760; 96365; 96366; 96376; 99285